=== PATIENT | male | born 1990 | race Caucasian/White ===

== ENCOUNTER 2019-01-18 08:28 | Emergency (ER) | payer OTHER ==
[~2019-01-18] VITALS: Ht 167.6 cm; Wt 64.8 kg
[2019-01-18] MEDS ORDERED: MORPHINE 2 MG/ML 1ML SYRINGE (J2270) IV ONE (09:00)
[2019-01-18] MEDS ORDERED: CORT5TAB2 PO (09:06)
[2019-01-18] MEDS ORDERED: ENDO5TAB PO (09:06)
[2019-01-18] MEDS ORDERED: BACI28.43 EX (09:06)
[2019-01-18] MEDS ORDERED: LEXA1TAB2 PO (09:06)
[2019-01-18] MEDS ORDERED: PROM50TA28 PO (09:06)
[2019-01-18] MEDS ORDERED: CRES1CAP2 PO (09:06)
[2019-01-18] MEDS ORDERED: ALEN70TA74 PO (09:06)
[2019-01-18] MEDS ORDERED: FOLI20CA PO (09:06)
[2019-01-18] MEDS ORDERED: MEDR4PAK PO (09:06)
[2019-01-18] MEDS ORDERED: CLAR10CA3 PO (09:06)
[2019-01-18] MEDS ORDERED: PENI1TAB17 PO (09:06)
[2019-01-18] MEDS ORDERED: URSO300C3 PO (09:06)
[2019-01-18] MEDS ORDERED: [UNRECOGNIZED DRUG - CODE] IV (09:06)
[2019-01-18] MEDS ORDERED: [UNRECOGNIZED DRUG - CODE] IV (09:06)
[2019-01-18] MEDS ORDERED: PROTPAK PO (09:06)
[2019-01-18] MEDS ORDERED: MAGN133T PO (09:06)
[2019-01-18] MEDS ORDERED: ACYC400T PO (09:06)
--- NOTE | 2019-01-18 09:26 | REP ---
Clinical: Chest pain and tachycardia . Comparison: 05/25/2008 . Findings: The mediastinum and cardiac silhouette are stable and within normal limits for portable technique. The lung steiner are clear without acute consolidation, effusion, or pneumothorax. Skeletal structures are intact. Impression: No acute cardiopulmonary process appreciated. Electronically Signed by Marquez Cordova MD 01/18/2019 09:17 A
[2019-01-18] MEDS ORDERED: ONDANSETRON 4MG/2ML VIAL (J2405) IV ONE (09:30)
[2019-01-18] MEDS ORDERED: NS 1,000 ML IV SCH (09:30)
[2019-01-18] MEDS ORDERED: NS 1,000 ML IV ONE ×2 (09:45→12:30)
[2019-01-18 09:46] LABS: HEMATOCRIT 42.5 % (42.0-52.0); HEMOGLOBIN 14.7 g/dl (13.5-17.5); LYMPH # 0.4 10^3/uL (1.5-5.0); LYMPH % 64.6 % (24.0-44.0); MEAN CORPUSCULAR HEMOGLOBIN 35.3 pg (27.0-33.0); MEAN CORPUSCULAR HGB CONC 34.6 g/dl (32.0-36.5); MEAN CORPUSCULAR VOLUME 102.2 fl (80.0-96.0); MONO # 0.2 10^3/uL (0.0-0.8); MONO % 33.8 % (0.0-5.0); NEUTROPHILS % 1.6 % (36.0-66.0); RED BLOOD COUNT 4.16 10^6/uL (4.30-6.10)
[2019-01-18 10:15] LABS: WHITE BLOOD COUNT 0.7 10^3/uL (4.0-10.0)
[2019-01-18 10:27] LABS: ALBUMIN 3.8 GM/DL (3.2-5.2); BILIRUBIN,DIRECT 1.1 MG/DL (0.0-0.2); BILIRUBIN,TOTAL 2.4 MG/DL (0.2-1.0); TOTAL PROTEIN 5.7 GM/DL (6.4-8.2)
[2019-01-18 10:58] LABS: PLATELET COUNT, AUTOMATED 27 10^3/uL (150-450)
[2019-01-18 10:59] LABS: MAGNESIUM LEVEL 1.2 MG/DL (1.8-2.4); PHOSPHORUS LEVEL 4.4 MG/DL (2.5-4.9)
[2019-01-18] MEDS ORDERED: ISOVUE-370 76% 100ML VIAL (Q9967) As Ordered ONE (11:06)
--- NOTE | 2019-01-18 11:34 | REP ---
Clinical: Acute right sided chest pain. Technique: Axial contrast enhanced images from the thoracic inlet to the upper abdomen using 100 ml Isovue 370 intravenous contrast material with coronal and sagittal re-formations. Findings: Satisfactory enhancement of the pulmonary vasculature is achieved and no filling defects are identified to suggest pulmonary embolus. Thoracic aorta is normal caliber without aneurysm or dissection. Heart and pericardium are normal. Bilateral lung steiner are well aerated and clear without acute pulmonary parenchymal consolidation or atelectasis. No nodule or mass lesion. No pleural effusion/reaction. No pneumothorax. No adenopathy. Impression: No evidence for pulmonary embolus. No acute pleuroparenchymal or mediastinal process. Electronically Signed by Marquez Cordova MD 01/18/2019 11:25 A
[2019-01-18] MEDS ORDERED: MORPHINE 4 MG/ML 1ML VIAL/SYRINGE (J2270) IV ONE (12:30)
[2019-01-18] MEDS ORDERED: PIPERACILLIN/TAZOBACTAM SOD 3.375 GM in D5W MINI-BAG PLUS 50 ML IV ONE (12:45)
[2019-01-18] MEDS ORDERED: D5W/0.45% SODIUM CHLORIDE 1,000 ML IV SCH (15:15)
[2019-01-18 16:42] VITALS: BP 108/58
--- NOTE | 2019-01-18 19:33 | ECGEPIP ---
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
== END 2019-01-18 16:47 | disposition short-term general hospital (02) ==
LOC: M ED 08:28
DX: R07.9 Chest pain, unspecified (principal); R00.0 Tachycardia, unspecified; R11.2 Nausea with vomiting, unspecified; D70.0 Congenital agranulocytosis; Z79.899 Other long term (current) drug therapy; Z88.1 Allergy status to other antibiotic agents; Z88.2 Allergy status to sulfonamides; Z88.8 Allergy status to other drugs, medicaments and biological substances
CPT/HCPCS: 71045; 71275; 80047; 80076; 81001; 83605; 83690; 83735; 84100; 85025; 85049; 85055; 85379; 87040; 93005; 96374; 96375; 96376; 99285; J2270; J2405; J2543; Q9967

== ENCOUNTER 2019-01-26 03:28 | Inpatient (IN) | payer OTHER ==
[2019-01-26] VITALS (18 sets, daily range): BP systolic 92–120; BP diastolic 47–76
[~2019-01-26] VITALS: Ht 167.6 cm; Wt 68.5 kg
[~2019-01-26 03:28] MED LIST: ACYC400T PO; ALEN70TA74 PO; BACI28.43 EX; CLAR10CA3 PO; CORT5TAB2 PO; CRES1CAP2 PO; ENDO5TAB PO; FOLI20CA PO; LEXA1TAB2 PO; MAGN133T PO; MEDR4PAK PO; PENI1TAB17 PO; PROM50TA28 PO; PROTPAK PO; URSO300C3 PO; [UNRECOGNIZED DRUG - CODE] IV; [UNRECOGNIZED DRUG - CODE] IV
[2019-01-26] MEDS ORDERED: ACTE80IN IV (03:46)
[2019-01-26] MEDS ORDERED: THER4000 PO (03:46)
[2019-01-26] MEDS ORDERED: XIID5DRO OU (03:47)
[2019-01-26] MEDS ORDERED: NS 1,000 ML IV ONE (04:15)
[2019-01-26] MEDS ORDERED: ONDANSETRON 4MG/2ML VIAL (J2405) IV ONE (04:15)
[2019-01-26] MEDS ORDERED: ISOVUE-370 76% 100ML VIAL (Q9967) As Ordered ONE (04:50)
[2019-01-26 05:01] LABS: BASO % 1.8 % (0.0-1.0); HEMATOCRIT 37.6 % (42.0-52.0); LYMPH # 0.5 10^3/uL (1.5-5.0); LYMPH % 89.3 % (24.0-44.0); MEAN CORPUSCULAR HEMOGLOBIN 35.1 pg (27.0-33.0); MEAN CORPUSCULAR HGB CONC 34.6 g/dl (32.0-36.5); MEAN CORPUSCULAR VOLUME 101.6 fl (80.0-96.0); MONO # 0.1 10^3/uL (0.0-0.8); MONO % 8.9 % (0.0-5.0)
[2019-01-26] MEDS: MORPHINE 4 MG/ML 1ML VIAL/SYRINGE (J2270) IV PRN ×2 (05:05→06:53)
[2019-01-26 05:11] LABS: INR 1.25; PROTHROMBIN TIME 15.4 SECONDS (11.8-14.0)
[2019-01-26 05:12] LABS: PARTIAL THROMBOPLASTIN TIME 26.4 SECONDS (25.0-38.4)
[2019-01-26 05:26] LABS: WHITE BLOOD COUNT 0.6 10^3/uL (4.0-10.0)
[2019-01-26 05:27] LABS: PLATELET COUNT, AUTOMATED 20 10^3/uL (150-450)
[2019-01-26] MEDS ORDERED: VANCOMYCIN HCL 1,000 MG, VIAL MATE ADAPTER 1 EACH in D5W 250 ML IV ONE (05:45)
[2019-01-26] MEDS ORDERED: PIPERACILLIN/TAZOBACTAM SOD 3.375 GM in D5W MINI-BAG PLUS 50 ML IV ONE (05:45)
--- NOTE | 2019-01-26 05:53 | REPVR ---
EXAM: CT Abdomen and Pelvis With Contrast EXAM DATE/TIME: 01/26/2019 4:57 AM CLINICAL HISTORY: 29 years old, male; Abdominal pain; Localized; Upper; Additional info: Upper abd pain TECHNIQUE: Imaging protocol: Computed tomography of the abdomen and pelvis with intravenous contrast. Radiation optimization: All CT scans at this facility use at least one of these dose optimization techniques: automated exposure control; mA and/or kV adjustment per patient size (includes targeted exams where dose is matched to clinical indication); or iterative reconstruction. Contrast material: ISOVUE 370; Contrast volume: 100 ml; Contrast route: IV; COMPARISON: No relevant prior studies available. FINDINGS: Lungs: There is minimal right middle lobe and lingula atelectasis. Mediastinum: The visualized distal esophagus contains fluid and may be mildly thickened as well. Liver: Unremarkable. There are no focal liver lesions present. Gallbladder and bile ducts: The gallbladder is partially contracted. The gallbladder appears hyperenhancing. The wall may be thickened but assessment is limited by contraction as well as adjacent free fluid. No stones identified. There is no biliary ductal dilation. Pancreas: There is marked diffuse fatty replacement of the pancreas. Spleen: The spleen is normal. Adrenals: The adrenal glands are normal. Kidneys and ureters: The kidneys are unremarkable. There are no ureteral stones or hydronephrosis. Stomach and bowel: There is marked diffuse thickening of the small bowel throughout the abdomen, with mild dilation of proximal small bowel loops but no distinct point. There is marked diffuse thickening of the entire colon. There is no significant dilation of the colon. The wall of the the stomach appears thickened and the mucosa mildly hyperenhancing, most prominent distally. Appendix: The appendix is not specifically identified. Intraperitoneal space: There is a small to moderate amount of free intraperitoneal fluid present. There is no free intraperitoneal air. Vasculature: No aortic aneurysm. Lymph nodes: No lymphadenopathy is seen. Bladder: The bladder is mostly collapsed. No bladder stones are identified. Reproductive: The prostate gland and seminal vesicles are normal. Bones/joints: The osseous structures appear slightly heterogeneous in density diffusely, but no focal lytic or sclerotic bone lesions are identified. There are no acute fractures. Soft tissues: Unremarkable. IMPRESSION: 1. Marked diffuse thickening of the entire small bowel and colon, and to a lesser extent the stomach, with [id number] ascites. The etiology is uncertain. The distribution and the patient's age would not be typical for ischemic disease. The extent is more than expected for inflammatory bowel disease. An infectious enterocolitis is possible. In the appropriate clinical setting, ndebv-[id number]-[id number] disease could be considered. 2. Marked diffuse fatty replacement of the pancreas. 3. Partially contracted gallbladder with hyperenhancement of the mucosa. Assessment of the gallbladder wall thickness is limited by contraction and the presence of adjacent ascites. Electronically signed by: Justina Saenz On 01/26/2019 05:53:04 AM
[2019-01-26] MEDS ORDERED: ACETAMINOPHEN TAB 650MG DOSE (2X325MG) PO ONE ×2 (06:00→09:00)
[2019-01-26] MEDS ORDERED: DILUENT IV ONE (06:00)
[2019-01-26] MEDS ORDERED: NS IV ONE (06:00)
[2019-01-26 06:33] LABS: ALBUMIN 2.9 GM/DL (3.2-5.2); ALT/SGPT 41 U/L (12-78); BILIRUBIN,DIRECT 1.8 MG/DL (0.0-0.2); BILIRUBIN,TOTAL 2.9 MG/DL (0.2-1.0); BLOOD UREA NITROGEN 25 MG/DL (7-18); CALCIUM LEVEL 8.6 MG/DL (8.5-10.1); CARBON DIOXIDE LEVEL 25 MEQ/L (21-32); CHLORIDE LEVEL 105 MEQ/L (98-107); CREATININE FOR GFR 0.98 MG/DL (0.70-1.30); GLOMERULAR FILTRATION RATE > 60.0 (>60); GLUCOSE, FASTING 268 MG/DL (70-100); LIPASE 15 U/L (73-393); POTASSIUM SERUM 4.2 MEQ/L (3.5-5.1); SODIUM LEVEL 140 MEQ/L (136-145); TOTAL PROTEIN 5.1 GM/DL (6.4-8.2)
[2019-01-26] MEDS ORDERED: NS 1,000 ML IV SCH ×2 (09:00→11:15)
[2019-01-26] MEDS ORDERED: PROM75TA2 PO (09:05)
[2019-01-26] MEDS ORDERED: PENT30IN INH (09:05)
[2019-01-26] MEDS ORDERED: PENI500T PO (09:05)
[2019-01-26] MEDS ORDERED: METH4TAB28 PO (09:05)
[2019-01-26] MEDS ORDERED: ACET1TAB55 PO (09:05)
[2019-01-26] MEDS ORDERED: FOLI1TAB11 PO (09:05)
[2019-01-26] MEDS ORDERED: LORA-674 PO (09:05)
[2019-01-26] MEDS ORDERED: PANT40TA3 PO (09:05)
[2019-01-26] MEDS ORDERED: LOPE1CAP5 PO (09:08)
[2019-01-26] MEDS ORDERED: [UNRECOGNIZED DRUG - CODE] SC (09:08)
[2019-01-26] MEDS ORDERED: SODIUM CHLORIDE 0.9% 1000ML IV ONE ×2 (10:00→11:15)
[2019-01-26] MEDS: fentaNYL 100 MCG/2 ML INJECTION (J3010) IV PRN ×5 (10:05→20:34)
[2019-01-26] MEDS ORDERED: ONDANSETRON 4MG/2ML VIAL (J2405) IV PRN (11:15)
[2019-01-26] MEDS ORDERED: AMIKACIN 1000 MG/4 ML VIAL (J0278) IV SCH (11:30)
[2019-01-26] MEDS: HYDROCORTISONE 100 MG/2 ML VIAL (J1720) IV SCH ×2 (12:18→18:42)
[2019-01-26] MEDS ORDERED: FILGRASTIM 480 MCG/0.8 ML SYRINGE (J1442) SC SCH (13:00)
[2019-01-26] MEDS ORDERED: LIDOCAINE 1% MDV 20ML VIAL As Ordered ONE (13:23)
[2019-01-26] MEDS ORDERED: diphenhydrAMINE INJ 50MG/ML VIAL (J1200) IV ONE (13:30)
[2019-01-26] MEDS ORDERED: FAMOTIDINE IV BAG 20 MG in APPROPRIATE DILUENT 1 EA IV ONE (13:30)
[2019-01-26] MEDS ORDERED: AMIKACIN SULFATE IV SCH (14:00)
[2019-01-26] MEDS ORDERED: D5W IV SCH (14:00)
[2019-01-26] MEDS: ONDANSETRON 4MG/2ML VIAL (J2405) IV PRN ×2 (14:23→20:34)
--- NOTE | 2019-01-26 14:36 | REP ---
REASON: Status post line placement. A central venous catheter is seen entering from the left internal jugular vein. The tip is in the region of the right atrium. There is no pneumothorax. There is no significant change in appearance of the lung steiner compared to 01/18/2019. They are hypoexpanded. The technique utilized in obtaining the radiograph has magnified the cardiac silhouette and accentuated the interstitial markings. There is no change in the osseous structures. IMPRESSION: Status post central line placement, as described above. There is no evidence of acute cardiopulmonary disease. Electronically Signed by Javier Coleman DO 01/26/2019 03:38 P
[2019-01-26] MEDS ORDERED: [UNRECOGNIZED DRUG - OTHER] SC SCH (15:00)
[2019-01-26] MEDS ORDERED: PROMETHAZINE INJ 25 MG/ML VIAL (J2550) IV PRN (15:15)
--- NOTE | 2019-01-26 15:40 | HPEPDOC ---
General Date of Admission Jan 26, 2019 at 07:56 Date of Service: Jan 26, 2019 Chief Complaint The patient is a 29-year-old male admitted with a reason for visit of Enteritis,Neutropenic Sepsis. History of Present Illness History is sparse due to patient condition. 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 He was treated with chemotherapy and radiation and subsequent bone marrow transplant. In general, he has been fairly stable, he is managed at [facility] in [place]. He had been hospitalized there last week out of concerns for infection associated with neutropenia. He was on antibiotics inclusive of Zosyn. Cultures were negative, counts appeared to be recovering and so he was discharged to home. The patient developed an erythematous rash to his trunk and face that was pruritic. He also developed malaise and fever and diarrhea and vomiting. There was no blood with his stool or emesis. He also had some increasing abdominal distention. He subsequently came to the hospital for evaluation. He was febrile with tachycardia and hypotension. CBC was remarkable for severe neutropenia and thrombocytopenia with a platelet count of 20. CT scan showed contracted gallbladder. Note was also made of diffuse fatty replacement of the pancreas. Most striking finding was to the bowel, which showed markedly diffuse thickening consistent with a enterocolitis as there was thickening to the large bowel as well. There is also question of intra-abdominal fluid versus blood. Additional information obtained from his care team at [facility] is that the patient has been having episodes of ascites. He has had paracentesis in the past. The etiology is unclear. Home Medications Scheduled Acyclovir (Acyclovir) 400 Mg Tablet, 400 MG PO BID, (Reported) Cholecalciferol (Vitamin D3) (Thera-D) 4,000 Unit Tablet, 4,000 UNIT PO QHS, (Reported) Eculizumab (Soliris) 300 Mg/30 Ml Vial, 1,200 MG IV Q4WKS, (Reported) DUE 02/03/19 Eltrombopag Olamine (Promacta) 75 Mg Tablet, 75 MG PO QHS, (Reported) Escitalopram Oxalate (Lexapro) 20 Mg Tablet, 20 MG PO QHS, (Reported) Folic Acid (Folic Acid) 1 Mg Tablet, 1 MG PO DAILY, (Reported) Isavuconazonium Sulfate (Cresemba) 186 Mg Capsule, 372 MG PO DAILY, (Reported) Loratadine (Loratadine) 10 Mg Tablet, 10 MG PO DAILY, (Reported) Magnesium Oxide/Magnesium (nd-Yojf-Qkllxqi Tablet) 133 Mg Tablet, 266 MG PO TID, (Reported) Methylprednisolone (Methylprednisolone) 4 Mg Tablet, 2 MG PO QWEEK, (Reported) SATURDAYS Pantoprazole Sodium (Pantoprazole Sodium) 40 Mg Tablet.dr, 40 MG PO BID, (Reported) Penicillin V Potassium (Penicillin V Potassium) 500 Mg Tablet, 500 MG PO BID, (Reported) Pentamidine Isethionate (Nebupent) 300 Mg Vial.neb, 300 MG INH Q4WKS, (Reported) Tocilizumab (Actemra) Unknown Strength Vial, 1 DOSE IV Q2WK, (Reported) Ursodiol (Ursodiol) 300 Mg Capsule, 600 MG PO TID, (Reported) Scheduled PRN Acetaminophen (Acetaminophen) 325 Mg Tablet, 650 MG PO Q4H PRN for PAIN, (Rep orted) Lifitegrast (Xiidra) 5% Droperette, 1 DROP OU BID PRN for DRY EYES, (Reported) Loperamide HCl (Loperamide) 2 Mg Capsule, 4 MG PO Q6H PRN for DIARRHEA, (Reported) Sargramostim (Leukine) 250 Mcg Vial, 500 MCG SC 2XW PRN for ANC <1.5, (Reported) Allergies Coded Allergies: Sulfa (Sulfonamide Antibiotics) (Verified Allergy, Severe, ANAPHYLAXIS, 01/18/19) furosemide (Verified Allergy, Severe, RASH, 01/26/19) filgrastim (Verified Allergy, Unknown, 7Q ABNORMALITY, 01/26/19) per mother, pt is not to ever receive filgrastim Past Medical History Medical History AML, status post chemotherapy, radiation and bone marrow transplant Surgical History Patient denies any significant surgical history other than placement of ports and lines. Family History Patient states family history is unremarkable. Social History * Smoker: Denies Alcohol: Denies Drugs: denies Psychosocial History: No pertinent psych hx A-FIB/CHADSVASC A-FIB History Current/History of A-Fib/PAF?: No Current PO Anticoag Therapy: No Review of Systems Other systems Review of 10 systems is otherwise negative except as stated in the HPI. Physical Examination General Exam: Positive: Alert, Cooperative, Moderate Distress Eye Exam: Positive: PERRLA, EOMI, Other Eye Symptoms (patient does have some eyelid edema and scleral injection) ENT Exam: Positive: Atraumatic, Mucous membr. moist/pink, Nares Patent, Other ENT (no oral ulcers) Neck Exam: Positive: Supple; Negative: JVD, thyromegaly, +2 carotid pulse wo bruit, Lymphadenopathy, Other Chest Exam: Positive: Clear to auscultation, Other (occasional cough) Heart Exam: Positive: Tachycardic, Normal S1, Normal S2 Telemetry: Positive: Sinus Abdomen Exam: Positive: Normal bowel sounds, Soft; Negative: BS Hyperactive, BS Hypoactive, Tenderness, Hepatospenomegaly, Mass, Hernia, Other Extremity Exam: Positive: Normal pulses; Negative: Clubbing, Cyanosis, Edema Skin Exam: Positive: Rash (patient has erythematous diffuse rash to trunk and face. It is not currently pruritic), Other skin issue (some tattoos, scars to anterior chest from prior line placement.) Neuro Exam: Positive: Normal Speech, Cranial Nerves 3-12 NL Psych Exam: Positive: Mental status NL Vital Signs Vital Signs Date Time Temp Pulse Resp B/P (MAP) Pulse Ox O2 Delivery O2 Flow Rate FiO2 01/26/19 15:00 137 22 102/51 (73) 94 01/26/19 14:45 99.0 01/26/19 03:48 Room Air Laboratory Data Labs 24H Laboratory Tests 2 01/26/19 04:36: Immature Granulocyte % (Auto) 0.0, White Blood Count 0.6*L, Red Blood Count 3.70L, Hemoglobin 13.0L, Hematocrit 37.6L, Mean Corpuscular Volume 101.6H, Mean Corpuscular Hemoglobin 35.1H, Mean Corpuscular Hemoglobin Concent 34.6, Red Cell Distribution Width 15.3H, Platelet Count 20*L, Neutrophils (%) (Auto) 0.0L, Lymphocytes (%) (Auto) 89.3H, Monocytes (%) (Auto) 8.9H, Eosinophils (%) (Auto) 0.0, Basophils (%) (Auto) 1.8H, Neutrophils # (Auto) 0.0L, Lymphocytes # (Auto) 0.5L, Monocytes # (Auto) 0.1, Eosinophils # (Auto) 0.0, Basophils # (Auto) 0.0, Nucleated Red Blood Cells % (auto) 3.6H, Immature Platelet Fraction 9.9, Prothrombin Time 15.4H, Prothromb Time International Ratio 1.25, Activated Partial Thromboplast Time 26.4, Urine Color KENNETH, Urine Appearance CLEAR, Urine pH 5.0, Urine Specific [place] 1.026, Urine Protein NEGATIVE, Urine Glucose (UA) 3+H, Urine Ketones TRACEH, Urine Blood NEGATIVE, Urine Nitrite NEGATIVE, Urine Bilirubin NEGATIVE, Urine Urobilinogen 0.2, Urine Leukocyte Esterase NEGATIVE, Urine WBC (Auto) 2, Urine RBC (Auto) 2, Urine Hyaline Casts (Auto) 0, Urine Bacteria (Auto) NEGATIVE, Urine Squamous Epithelial Cells 1, Urine Mucus (Auto) SMALL, Urine Sperm (Auto) 01/26/19 04:40: POC Glucose (Misc Panel) 308H, POC Sodium (Misc Panel) 134L, POC Potassium (Misc Panel) 6.1*H, POC Chloride (Misc Panel) 101, POC Total CO2 (Misc Panel) 28.0H, POC Blood Urea Nitrogen (Misc Panel 33H, POC Ionized Calcium (Misc Panel) 4.2L, POC Creatinine (Misc Panel) 0.9, POC Hematocrit (Misc Panel) 40.0 01/26/19 05:39: Lactic Acid Level 2.2*H 01/26/19 05:57: Anion Gap 10, Glomerular Filtration Rate > 60.0, Calcium Level 8.6, Aspartate Amino Transf (AST/SGOT) 15, Alanine Aminotransferase (ALT/SGPT) 41, Alkaline Phosphatase 89, Total Bilirubin 2.9H, Direct Bilirubin 1.8H, Total Protein 5.1L, Albumin 2.9L, Albumin/Globulin Ratio 1.32, Lipase 15L 01/26/19 10:09: Lactic Acid Followup at 4 Hours 5.2*H CBC/BMP Laboratory Tests 01/26/19 04:36 Red Blood Count 3.70 L, Mean Corpuscular Volume 101.6 H, Mean Corpuscular Hemoglobin 35.1 H, Mean Corpuscular Hemoglobin Concent 34.6, Red Cell Distribution Width 15.3 H, Neutrophils (%) (Auto) 0.0 L, Lymphocytes (%) (Auto) 89.3 H, Monocytes (%) (Auto) 8.9 H, Eosinophils (%) (Auto) 0.0, Basophils (%) (Auto) 1.8 H, Neutrophils # (Auto) 0.0 L, Lymphocytes # (Auto) 0.5 L, Monocytes # (Auto) 0.1, Eosinophils # (Auto) 0.0, Basophils # (Auto) 0.0 01/26/19 05:57 Microbiology Microbiology 01/26/19 Blood Culture, Received Pending 01/26/19 Blood Culture, Received Pending Assessment/Plan 1. Neutropenic sepsis. Patient has had tachycardia, hypotension, fever, neutropenia. Patient has been placed on empiric antibiotics inclusive of gram-negative coverage with vancomycin, Zosyn and amikacin. Cultures have been obtained, the results of which are pending. He is responding to aggressive IV fluid resuscitation and stress dose steroids. He does not currently require pressors. 2. Thrombocytopenia. Severe abdominal pain, distention, hypotension and tachycardia raise concern for active bleeding in the presence of a platelet count of 20. Consequently, the patient is receiving platelet transfusion. Patient has been seen by the surgery service and for now there are no surgical concerns. 3. AML. The patient is status post bone marrow transplant. Again, he is managed primarily by the team at [facility]. Plans are to transfer him when a bed becomes available. In the meantime he is to remain on his granulocyte colony-stimulating factor. He is to maintain platelet count of 20 or more. Hemoglobin is to be maintained at greater than 8. We appreciate the assistance of the vascular surgery service with line placement for aggressive intervention. Plan / VTE VTE Prophylaxis Ordered?: Yes (serial compression devices) VTE Exclusion Pharmacological: Thrombocytopenia Plan IVF: Continue Diet: Continue Current Activity: Bedrest Medications: Start Antibiotics, Start Steroids Diagnostics: Check Labs, Repeat Labs in AM Anticipated Discharge: Transfer IRIS BREAUX MD Jan 26, 2019 15:40
[2019-01-26] MEDS ORDERED: URSODIOL 300 MG CAP PO SCH (16:00)
[2019-01-26 16:15] LABS: HEMATOCRIT 30.9 % (42.0-52.0); HEMOGLOBIN 10.2 g/dl (13.5-17.5); MEAN CORPUSCULAR HEMOGLOBIN 35.5 pg (27.0-33.0); MEAN CORPUSCULAR VOLUME 107.7 fl (80.0-96.0); RED BLOOD COUNT 2.87 10^6/uL (4.30-6.10)
[2019-01-26] MEDS ORDERED: PANTOPRAZOLE 40MG INJ (PROTONIX) (C9113) IV ONE (16:15)
[2019-01-26 16:17] LABS: PLATELET COUNT, AUTOMATED 52 10^3/uL (150-450); WHITE BLOOD COUNT 0.5 10^3/uL (4.0-10.0)
[2019-01-26] MEDS ORDERED: diphenhydrAMINE INJ 50MG/ML VIAL (J1200) As Ordered ONE (16:22)
[2019-01-26 16:27] LABS: INR 1.78; PROTHROMBIN TIME 20.5 SECONDS (11.8-14.0)
[2019-01-26] MEDS ORDERED: diphenhydrAMINE INJ 50MG/ML VIAL (J1200) IV PRN (16:30)
[2019-01-26 17:08] LABS: ALBUMIN 2.3 GM/DL (3.2-5.2); BILIRUBIN,TOTAL 2.3 MG/DL (0.2-1.0); CREATININE FOR GFR 1.91 MG/DL (0.70-1.30); GLOMERULAR FILTRATION RATE 44.6 (>60); POTASSIUM SERUM 3.9 MEQ/L (3.5-5.1); TOTAL PROTEIN 4.2 GM/DL (6.4-8.2)
--- NOTE | 2019-01-26 18:48 | DS.PDOC ---
Discharge Summary General Date of Admission Jan 26, 2019 at 07:56 Date of Discharge Date of transfer: January 26, 2019 Attending Physician: IRIS BREAUX MD Specialist/Consultants Involve: Kai Gallardo MD Discharge Summary PROCEDURES PERFORMED DURING STAY: Central line placement, platelet transfusion. ADMITTING DIAGNOSES: 1. Neutropenic sepsis. DISCHARGE DIAGNOSES: 1. Neutropenic sepsis, thrombocytopenia, acute renal failure, enterocolitis, history of AML. COMPLICATIONS/CHIEF COMPLAINT: Enteritis,Neutropenic Sepsis. 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 He was treated with chemotherapy and radiation and subsequent bone marrow transplant. In general, he has been fairly stable, he is managed at [facility]. He had been hospitalized there last week out of concerns for infection associated with neutropenia. He was on antibiotics inclusive of Zosyn. Cultures were negative, counts appeared to be recovering and so he was discharged to home. The patient developed an erythematous rash to his trunk and face that was pruritic. He also developed malaise and fever and diarrhea and vomiting. There was no blood with his stool or emesis. He also had some increasing abdominal distention. He subsequently came to the hospital for evaluation. He was febrile with tachycardia and hypotension. CBC was remarkable for severe neutropenia and thrombocytopenia with a platelet count of 20. CT scan showed contracted gallbladder. Note was also made of diffuse fatty replacement of the pancreas. Most striking finding was to the bowel, which showed markedly diffuse thickening consistent with a enterocolitis as there was thickening to the large bowel as well. The patient was placed in the intensive care unit. He received aggressive IV hydration with multiple boluses of normal saline. A central line was placed due to poor peripheral access. Patient did not require pressor support. Blood cultures were obtained. The patient was placed on empiric antibiotic therapy inclusive of gram-negative coverage; agents include vancomycin, Zosyn and amikacin. There was initial concern for intra-abdominal bleeding as he had hypotension, tachycardia, severe abdominal pain and thrombocytopenia with platelet count of 20. He consequently did receive transfusion of platelets; most recent platelet count is 52. Etiology of the patient's abdominal pain remains unclear. Of interest, patient does have a history of ascites and has required paracentesis in the past. Pain is only moderately managed with fentanyl. In addition to antibiotics the patient was maintained on his granulocyte stimulating factor and was also placed on stress dose steroids. Patient's systolic blood pressure has stabilized ranging 100-120. He remains tachycardic with heart rate 137-146. O2 sats are 92-95% on room air. Most recent laboratory data shows a white cell count of 0.5 with no neutrophils or bands. Again, platelets are 52. Creatinine has increased from 0.98 to 1.91--consistent with acute renal failure. We have just received notification from the micro lab that initial blood cultures are positive for gram-negative rods. DISCHARGE MEDICATIONS: Please see below. ALLERGIES: Please see below. PHYSICAL EXAMINATION ON DISCHARGE: VITAL SIGNS: Please see below. HENT: Neck remains supple, no adenopathy or thyromegaly, oral mucosa is moist without lesions, patient does have eyelid edema and scleral injection, central line is placed to the left neck. Cardiovascular: Rapid rate and rhythm, unable to appreciate murmur. Respiratory: Clear to auscultation. No wheezing or cough. Abdomen: Distended, but not tympanic, tender, no guarding or rebound, decreased bowel tones. Extremities: No remarkable peripheral edema, patient does have bruising. Neuro: No gross neuromotor or sensory deficits. Skin: Patient had had remarkable erythema to his trunk and face with some itching. This appears to be receding. LABORATORY DATA: Please see below. IMAGING: Abdominal/Pelvic CT IMPRESSION: 1. Marked diffuse thickening of the entire small bowel and colon, and to a lesser extent the stomach, with [id number] ascites. The etiology is uncertain. The distribution and the patient's age would not be typical for ischemic disease. The extent is more than expected for inflammatory bowel disease. An infectious enterocolitis is possible. In the appropriate clinical setting, [id number] disease could be considered. 2. Marked diffuse fatty replacement of the pancreas. 3. Partially contracted gallbladder with hyperenhancement of the mucosa. Assessment of the gallbladder wall thickness is limited by contraction and the presence of adjacent ascites. Electronically signed by: Justina Saenz On 01/26/2019 05:53:04 AM PROGNOSIS: ACTIVITY: As tolerated. DIET: Clear liquids DISCHARGE PLAN: Case has been discussed with the patient's care team at [facility]. Patient will be transferred to their care. We appreciate the assistance of Drs. Merritt and Harry. The patient will be transported by air ambulance. DISPOSITION: . DISCHARGE CONDITION: Serious but Stable. TIME SPENT ON DISCHARGE: Greater than 60 minutes. Vital Signs/I&Os Vital Signs Date Time Temp Pulse Resp B/P (MAP) Pulse Ox O2 Delivery O2 Flow Rate FiO2 01/26/19 16:50 18 94 01/26/19 16:40 99.7 146 100/50 (72) 01/26/19 03:48 Room Air Laboratory Data Labs 24H Laboratory Tests 2 01/26/19 04:36: Immature Granulocyte % (Auto) 0.0, White Blood Count 0.6*L, Red Blood Count 3.70L, Hemoglobin 13.0L, Hematocrit 37.6L, Mean Corpuscular Volume 101.6H, Mean Corpuscular Hemoglobin 35.1H, Mean Corpuscular Hemoglobin Concent 34.6, Red Cell Distribution Width 15.3H, Platelet Count 20*L, Neutrophils (%) (Auto) 0.0L, Lymphocytes (%) (Auto) 89.3H, Monocytes (%) (Auto) 8.9H, Eosinophils (%) (Auto) 0.0, Basophils (%) (Auto) 1.8H, Neutrophils # (Auto) 0.0L, Lymphocytes # (Auto) 0.5L, Monocytes # (Auto) 0.1, Eosinophils # (Auto) 0.0, Basophils # (Auto) 0.0, Nucleated Red Blood Cells % (auto) 3.6H, Immature Platelet Fraction 9.9, Prothrombin Time 15.4H, Prothromb Time International Ratio 1.25, Activated Partial Thromboplast Time 26.4, Urine Color KENNETH, Urine Appearance CLEAR, Urine pH 5.0, Urine Specific [place] 1.026, Urine Protein NEGATIVE, Urine Glucose ( UA) 3+H, Urine Ketones TRACEH, Urine Blood NEGATIVE, Urine Nitrite NEGATIVE, Urine Bilirubin NEGATIVE, Urine Urobilinogen 0.2, Urine Leukocyte Esterase NEGATIVE, Urine WBC (Auto) 2, Urine RBC (Auto) 2, Urine Hyaline Casts (Auto) 0, Urine Bacteria (Auto) NEGATIVE, Urine Squamous Epithelial Cells 1, Urine Mucus (Auto) SMALL, Urine Sperm (Auto) 01/26/19 04:40: POC Glucose (Misc Panel) 308H, POC Sodium (Misc Panel) 134L, POC Potassium (Misc Panel) 6.1*H, POC Chloride (Misc Panel) 101, POC Total CO2 (Misc Panel) 28.0H, POC Blood Urea Nitrogen (Misc Panel 33H, POC Ionized Calcium (Misc Panel) 4.2L, POC Creatinine (Misc Panel) 0.9, POC Hematocrit (Misc Panel) 40.0 01/26/19 05:39: Lactic Acid Level 2.2*H 01/26/19 05:57: Anion Gap 10, Glomerular Filtration Rate > 60.0, Calcium Level 8.6, Aspartate Amino Transf (AST/SGOT) 15, Alanine Aminotransferase (ALT/SGPT) 41, Alkaline Phosphatase 89, Total Bilirubin 2.9H, Direct Bilirubin 1.8H, Total Protein 5.1L, Albumin 2.9L, Albumin/Globulin Ratio 1.32, Lipase 15L 01/26/19 10:09: Lactic Acid Followup at 4 Hours 5.2*H 01/26/19 15:55: Nucleated Red Blood Cells % (auto) 27.7H, Prothrombin Time 20.5H, Prothromb Time International Ratio 1.78, Anion Gap 17H, Glomerular Filtration Rate 44.6L, Blood Urea Nitrogen 30H, Creatinine 1.91#H, Sodium Level 143, Potassium Level 3.9, Chloride Level 111H, Carbon Dioxide Level 15L, Calcium Level 7.0#L, Asparta te Amino Transf (AST/SGOT) 47H, Alanine Aminotransferase (ALT/SGPT) 35, Alkaline Phosphatase 63, Total Bilirubin 2.3H, Total Protein 4.2L, Albumin 2.3#L, Albumin/Globulin Ratio 1.21 CBC/BMP Laboratory Tests 01/26/19 04:36 Red Blood Count 3.70 L, Mean Corpuscular Volume 101.6 H, Mean Corpuscular Hemoglobin 35.1 H, Mean Corpuscular Hemoglobin Concent 34.6, Red Cell Distribution Width 15.3 H, Neutrophils (%) (Auto) 0.0 L, Lymphocytes (%) (Auto) 89.3 H, Monocytes (%) (Auto) 8.9 H, Eosinophils (%) (Auto) 0.0, Basophils (%) (Auto) 1.8 H, Neutrophils # (Auto) 0.0 L, Lymphocytes # (Auto) 0.5 L, Monocytes # (Auto) 0.1, Eosinophils # (Auto) 0.0, Basophils # (Auto) 0.0 01/26/19 05:57 01/26/19 15:55 Red Blood Count 2.87 L, Mean Corpuscular Volume 107.7 H, Mean Corpuscular Hemoglobin 35.5 H, Mean Corpuscular Hemoglobin Concent 33.0, Red Cell Distribution Width 16.1 H, Calcium Level 7.0 #L, Aspartate Amino Transf (AST/SGOT) 47 H, Alanine Aminotransferase (ALT/SGPT) 35, Alkaline Phosphatase 63, Total Bilirubin 2.3 H, Total Protein 4.2 L, Albumin 2.3 #L Microbiology Microbiology 01/26/19 Blood Culture, Received Pending 01/26/19 Blood Culture, Received Pending Discharge Medications Scheduled Acyclovir (Acyclovir) 400 Mg Tablet, 400 MG PO BID, (Reported) Cholecalciferol (Vitamin D3) (Thera-D) 4,000 Unit Tablet, 4,000 UNIT PO QHS, (Reported) Eculizumab (Soliris) 300 Mg/30 Ml Vial, 1,200 MG IV Q4WKS, (Reported) DUE 02/03/19 Eltrombopag Olamine (Promacta) 75 Mg Tablet, 75 MG PO QHS, (Reported) Escitalopram Oxalate (Lexapro) 20 Mg Tablet, 20 MG PO QHS, (Reported) Folic Acid (Folic Acid) 1 Mg Tablet, 1 MG PO DAILY, (Reported) Isavuconazonium Sulfate (Cresemba) 186 Mg Capsule, 372 MG PO DAILY, (Reported) Loratadine (Loratadine) 10 Mg Tablet, 10 MG PO DAILY, (Reported) Magnesium Oxide/Magnesium (di-Sgwm-Ufqplkh Tablet) 133 Mg Tablet, 266 MG PO TID, (Reported) Methylprednisolone (Methylprednisolone) 4 Mg Tablet, 2 MG PO QWEEK, (Reported) SATURDAYS Pantoprazole Sodium (Pantoprazole Sodium) 40 Mg Tablet.dr, 40 MG PO BID, (Reported) Penicillin V Potassium (Penicillin V Potassium) 500 Mg Tablet, 500 MG PO BID, (Reported) Pentamidine Isethionate (Nebupent) 300 Mg Vial.neb, 300 MG INH Q4WKS, (Reported) Tocilizumab (Actemra) Unknown Strength Vial, 1 DOSE IV Q2WK, (Reported) Ursodiol (Ursodiol) 300 Mg Capsule, 600 MG PO TID, (Reported) Scheduled PRN Acetaminophen (Acetaminophen) 325 Mg Tablet, 650 MG PO Q4H PRN for PAIN, (Report ed) Lifitegrast (Xiidra) 5% Droperette, 1 DROP OU BID PRN for DRY EYES, (Reported) Loperamide HCl (Loperamide) 2 Mg Capsule, 4 MG PO Q6H PRN for DIARRHEA, (Reported) Sargramostim (Leukine) 250 Mcg Vial, 500 MCG SC 2XW PRN for ANC <1.5, (Reported) Allergies Coded Allergies: Sulfa (Sulfonamide Antibiotics) (Verified Allergy, Severe, ANAPHYLAXIS, 01/18/19) furosemide (Verified Allergy, Severe, RASH, 01/26/19) filgrastim (Verified Allergy, Unknown, 7Q ABNORMALITY, 01/26/19) per mother, pt is not to ever receive filgrastim IRIS BREAUX MD Jan 26, 2019 18:48
[2019-01-26] MEDS ORDERED: ACYCLOVIR 200 MG CAPSULE PO SCH (21:00)
[2019-01-26] MEDS ORDERED: PANTOPRAZOLE 40MG TAB (PROTONIX) PO SCH (21:00)
[2019-01-26] MEDS ORDERED: ESCITALOPRAM OXALATE 10 MG TAB (LEXAPRO) PO SCH (21:00)
[2019-01-27] MEDS ORDERED: LORATADINE 10 MG TAB PO SCH (09:00)
[2019-01-27] MEDS ORDERED: FOLIC ACID 1 MG TAB PO SCH (09:00)
--- NOTE | 2019-01-28 08:32 | ECGEPIP ---
[facility] Test Date: 2019-01-26 Pat Name: CHAYO MURCIA Department: Room: [place] [address] Gender: Male [employer]: BELLA : 1990 Requested By: CHLOE MONTGOMERY Order Number: [id number] Reading MD: Marc Martinez Measurements Intervals [place] Rate: 135 P: -28 KS: 154 QRS: 7 QRSD: 75 T: -63 QT: 347 QTc: 521 Interpretive Statements SINUS TACHYCARDIA Prolonged QTc interval Nonspecific ST-T wave abnormalities Baseline artifact limits interpretation Electronically Signed on 01-28-2019 8:32:17 EDT by Marc Martinez
== END 2019-01-26 22:24 | disposition short-term general hospital (02) | DRG 720 ==
LOC: M ED 03:28 → M ED INP 07:56 → M ICU 10:31
PROVIDERS: ADMIT Internal Medicine; ATTEND Internal Medicine
DX: A41.9 Sepsis, unspecified organism (principal); C92.00 Acute myeloblastic leukemia, not having achieved remission; N17.9 Acute kidney failure, unspecified; Z94.81 Bone marrow transplant status; D70.9 Neutropenia, unspecified; D69.6 Thrombocytopenia, unspecified; Z79.899 Other long term (current) drug therapy; Z88.2 Allergy status to sulfonamides; Z88.8 Allergy status to other drugs, medicaments and biological substances